=== PATIENT | male | born 1980 | race Caucasian/White ===

== ENCOUNTER 2019-06-06 15:24 | Emergency (ER) | payer OTHER, SELFPAY ==
[~2019-06-06] VITALS: Ht 182.9 cm; Wt 95.0 kg
[2019-06-06 15:27] VITALS: BP 118/78
[2019-06-06] MEDS ORDERED: KETOROLAC 30 MG/1 ML IM ONE (16:00)
[2019-06-06] MEDS ORDERED: KETOROLAC 30 MG/1 ML ONE (16:01)
--- NOTE | 2019-06-06 16:41 | NUR ---
PT REFUSED CRUTCHES, STATES HE WILL JUST THROW THEM AWAY.
== END 2019-06-06 16:45 | disposition home or self-care (01) ==
LOC: ED 16:39
DX: S83.91XA Sprain of unspecified site of right knee, initial encounter (principal); X58.XXXA Exposure to other specified factors, initial encounter; Y93.89 Activity, other specified; Y92.89 Other specified places as the place of occurrence of the external cause; Y99.8 Other external cause status
CPT/HCPCS: 29505; 73564; 96372; 99283; J1885

== ENCOUNTER 2020-08-22 01:00 | Emergency (ER) | payer MEDICAID ==
[~2020-08-22] VITALS: Ht 182.9 cm; Wt 102.0 kg
[2020-08-22] MEDS ORDERED: ONDANSETRON 2MG/ML, 2ML ONE (01:26)
[2020-08-22] MEDS ORDERED: MORPHINE SULFATE 4 MG/ML, 1ML ONE ×2 (01:27→04:53)
[2020-08-22] MEDS ORDERED: MORPHINE SULFATE 4 MG/ML, 1ML IVPush PRN ×2 (01:30→05:00)
[2020-08-22] MEDS ORDERED: LIDOCAINE 1%-EPI 1:100K, 20ML INFIL ONE (01:30)
[2020-08-22] MEDS ORDERED: ONDANSETRON 2MG/ML, 2ML IVPush ONE (01:30)
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
[2020-08-22] MEDS ORDERED: LIDOCAINE-MPF 1%, 5ML ONE (02:13)
[2020-08-22 02:26] LABS: BASOPHILS % (AUTO) 0 % (0-1); EOSINOPHILS % (AUTO) 1 % (1-7); LYMPHOCYTES % (AUTO) 17 % (22-44); MEAN CORPUSCULAR HEMOGLOBIN 32.9 pg (27.5-34.5); MEAN CORPUSCULAR HGB CONC 34.5 g/dL (33.2-36.2); MEAN PLATELET VOLUME 9.4 fL (7.4-10.4); MONOCYTES % (AUTO) 7 % (2-9); NEUTROPHILS % (AUTO) 75 % (42-75); PLATELET COUNT 224 x10^3/uL (130-400); RED BLOOD COUNT 4.78 x10^6/uL (4.38-5.82); RED CELL DISTRIBUTION WIDTH 12.8 % (9.4-14.8)
[2020-08-22 02:27] LABS: MD NO
[2020-08-22 02:35] LABS: ALBUMIN 3.9 g/dL (3.4-5.0); ANION GAP 5 mmol/L (5-15); CALCIUM 8.5 mg/dL (8.5-10.1); CHLORIDE 112 mmol/L (98-107); CREATININE 1.01 mg/dL (0.7-1.3)
--- NOTE | 2020-08-22 03:00 | NUR ---
PT RESTING IN GURNEY, ASKING FOR WATER. AT BEDSIDE
[2020-08-22] MEDS ORDERED: OMNIPAQUE 350 MG/ML, 100ML BOTTLE ONE (03:02)
--- NOTE | 2020-08-22 04:00 | NUR ---
PT RESTING IN GURNEY WITH EYES SHUT. AT BEDSIDE
[2020-08-22 05:00] VITALS: BP 133/85
--- NOTE | 2020-08-22 05:18 | NUR ---
PT DC HOME, ALL DC INSTRUCTIONS EXPLAINED AND PAPERWORK SIGNED. PT AMBULATORY BUT TAKEN TO DC DESK BY WHEELCHAIR FOR COMFORT. TO DRIVE PT HOME. PT INSTRUCTED ON IS AND WAS ABLE TO DEMONSTRATE PROPER USE AND EXHALED 4000. PT MEDICATED FOR PAIN BEFORE DC
== END 2020-08-22 05:22 | disposition home or self-care (01) ==
LOC: ED 01:29
DX: S22.42XA Multiple fractures of ribs, left side, initial encounter for closed fracture (principal); S01.21XA Laceration without foreign body of nose, initial encounter; S01.81XA Laceration without foreign body of other part of head, initial encounter; S01.511A Laceration without foreign body of lip, initial encounter; S50.811A Abrasion of right forearm, initial encounter; S60.811A Abrasion of right wrist, initial encounter; S50.812A Abrasion of left forearm, initial encounter; S60.512A Abrasion of left hand, initial encounter; I31.8 Other specified diseases of pericardium; F17.200 Nicotine dependence, unspecified, uncomplicated; V29.9XXA Motorcycle rider (driver) (passenger) injured in unspecified traffic accident, initial encounter; Y93.89 Activity, other specified; Y92.488 Other paved roadways as the place of occurrence of the external cause; Y99.8 Other external cause status
CPT/HCPCS: 12052; 36415; 71045; 71260; 73060; 74177; 80048; 82040; 85025; 96374; 96375; 96376; 99285; J2270; J2405; Q9967

== ENCOUNTER 2020-09-15 11:18 | Emergency (ER) | payer MEDICAID ==
[~2020-09-15] VITALS: Ht 182.9 cm; Wt 99.5 kg
[2020-09-15 11:20] VITALS: BP 120/94
[2020-09-15] MEDS ORDERED: FAMOTIDINE 20 MG TABLET PO ONE (11:30)
--- NOTE | 2020-09-15 12:01 | NUR ---
PT NOT RESPONDING WHEN CALLED HIS NAME FOR US EXAM X2
--- NOTE | 2020-09-15 13:31 | NUR ---
BOWLING PT NO ANSWER
--- NOTE | 2020-09-15 13:56 | NUR ---
NO CALL X 2
== END 2020-09-15 14:01 | disposition left against medical advice (07) ==
LOC: ED 12:00
DX: L50.9 Urticaria, unspecified (principal)
CPT/HCPCS: 99281

== ENCOUNTER 2020-12-24 06:09 | Emergency (ER) | payer MEDICAID ==
[~2020-12-24] VITALS: Ht 182.9 cm; Wt 98.0 kg
--- NOTE | 2020-12-24 06:13 | NUR ---
not in lobby when called
[2020-12-24] MEDS ORDERED: ONDANSETRON 2MG/ML, 2ML ONE (06:28)
[2020-12-24] MEDS ORDERED: MORPHINE SULFATE 4 MG/ML, 1ML ONE (06:28)
[2020-12-24] MEDS ORDERED: MORPHINE SULFATE 4 MG/ML, 1ML IVPush PRN (06:30)
[2020-12-24] MEDS ORDERED: SODIUM CHLORIDE FLUSH 10ML SYR IVF ONE (06:30)
[2020-12-24] MEDS ORDERED: ONDANSETRON 2MG/ML, 2ML IVPush ONE (06:30)
--- NOTE | 2020-12-24 06:48 | NUR ---
PT HAVING RIGHT LOWER ABDOMINAL PAIN STARTING THIS MORNING AFTER WAKING UP. PT DENIES MEDICAL HISTORY, PT ALSO STATED HAVING BM BEFORE COMING IN WITHOUT RELIEF OF AB PAIN. PIV ESTABLISHED, LABS DRAWN, AND MEDICATED FOR PAIN PER EMAR. PT STATES HE IS UNABLE TO PROVIDE URINE SAMPLE AT THIS TIME, WILL REASSESS LATER.
--- NOTE | 2020-12-24 06:54 | NUR ---
REPORT GIVEN TO VICENTA JAFFE
--- NOTE | 2020-12-24 06:59 | NUR ---
Pt resting comfortably in bed. Connected to BP and O2. Awake and alert.
[2020-12-24 07:06] LABS: BASOPHILS % (AUTO) 1 % (0-1); EOSINOPHILS % (AUTO) 3 % (1-7); LYMPHOCYTES % (AUTO) 29 % (22-44); MEAN CORPUSCULAR HEMOGLOBIN 33.8 pg (27.5-34.5); MEAN CORPUSCULAR HGB CONC 35.5 g/dL (33.2-36.2); MEAN PLATELET VOLUME 8.8 fL (7.4-10.4); MONOCYTES % (AUTO) 8 % (2-9); NEUTROPHILS % (AUTO) 60 % (42-75); PLATELET COUNT 218 x10^3/uL (130-400); RED CELL DISTRIBUTION WIDTH 12.6 % (9.4-14.8)
[2020-12-24 07:08] LABS: ALANINE AMINOTRANSFERASE 48 U/L (12-78); ANION GAP 9 mmol/L (5-15); CALCIUM 9.2 mg/dL (8.5-10.1); CHLORIDE 111 mmol/L (98-107); CREATININE 1.06 mg/dL (0.7-1.3)
[2020-12-24 07:10] LABS: ALKALINE PHOSPHATASE 95 U/L (45-117); BILIRUBIN,TOTAL 0.4 mg/dL (0.2-1.0); TOTAL PROTEIN 7.2 g/dL (6.4-8.2)
[2020-12-24 07:11] LABS: MD NO
--- NOTE | 2020-12-24 07:19 | NUR ---
Pt ambulatory to bathroom with steady gait for UA. Pt to imaging now.
--- NOTE | 2020-12-24 07:26 | NUR ---
GONE TO CT
[2020-12-24] MEDS ORDERED: OMNIPAQUE 350 MG/ML, 100ML BOTTLE ONE (07:30)
[2020-12-24 07:40] LABS: MICROSCOPIC INDICATED
--- NOTE | 2020-12-24 07:53 | NUR ---
MD Huynh at bedside to update pt on POC. Pt states pain is under control, will offer Torodol when ordered.
[2020-12-24] MEDS ORDERED: KETOROLAC 30 MG/1 ML ONE (07:59)
[2020-12-24] MEDS ORDERED: KETOROLAC 30 MG/1 ML IVPush ONE (08:00)
--- NOTE | 2020-12-24 08:09 | NUR ---
Awaiting GI consult.
[2020-12-24 09:02] VITALS: BP 116/41
== END 2020-12-24 09:05 | disposition home or self-care (01) ==
LOC: ED 08:01
DX: R10.31 Right lower quadrant pain (principal); R11.0 Nausea; F17.200 Nicotine dependence, unspecified, uncomplicated
CPT/HCPCS: 36415; 74177; 80053; 81001; 85025; 96374; 96375; 99285; J1885; J2270; J2405; Q9967